=== PATIENT | female | born 1970 | race Caucasian/White ===

== ENCOUNTER 2019-08-10 17:02 | Emergency (ER) | payer OTHER, SELFPAY | END 2019-08-10 17:05 | disposition left against medical advice (07) | LOC: ANHED 08-21 16:12 | DX: Z53.21 Procedure and treatment not carried out due to patient leaving prior to being seen by health care provider (principal) | CPT/HCPCS: 99199 ==

== ENCOUNTER 2021-05-15 10:27 | Emergency (ER) | payer OTHER, SELFPAY ==
[2021-05-15 10:40] VITALS: BP 141/63; PULSE 77; RESP 20; TEMP 36.8; O2SAT 98
[2021-05-15 10:46] VITALS: BP 141/63; PULSE 77; RESP 20; TEMP 36.8; O2SAT 98
--- NOTE | 2021-05-15 11:09 | ED.DENTAL ---
HPI - Dental/Oral General Chief complaint: Dental/Oral Stated complaint: Swollen Gland Source: patient and RN notes reviewed Mode of arrival: ambulatory Limitations: no limitations History of Present Illness HPI Narrative: Annie is a 50-year-old female patient who ambulated into the [facility]. Patient states she has a swollen lymph node by her her right jaw. She is worried because her sister had a type of melanoma and was found in her lymph node. Patient states she has been struggling with seasonal allergies and her asthma the last couple weeks. Patient denies any dental issues. Denies any [id number] treatment. Denies any health history except asthma. Related Data Home Medications Medication Instructions Recorded Confirmed albuterol sulfate 1 inh INHALATION QID PRN 08/10/19 05/15/21 albuterol sulfate 2.5 mg INHALATION Q4H PRN 08/10/19 05/15/21 bupropion HCl 300 mg PO DAILY 05/15/21 05/15/21 diclofenac sodium 75 mg PO DAILY 05/15/21 05/15/21 pregabalin 75 mg PO DAILY 05/15/21 05/15/21 trazodone 50 mg PO DAILY 05/15/21 05/15/21 valacyclovir 500 mg PO DAILY 05/15/21 05/15/21 Allergies Allergy/AdvReac Type Severity Reaction Status Date / Time Penicillins Allergy Severe quits Verified 05/15/21 10:43 breathing Review of Systems Review of Systems: CONSTITUTIONAL: Denies body aches, fever, chills, or sweats. EYES: Denies visual changes, redness, or discharge. ENT: Denies rhinorrhea, + congestion, denies sore throat, or otalgia. CARDIOVASCULAR: Denies chest pain, palpitations, or edema. RESPIRATORY: + cough denies dyspnea. GASTROINTESTINAL: Denies abdominal pain, nausea, vomiting, or diarrhea. GENITOURINARY: Denies dysuria or hematuria. SKIN: Denies rash, itching, or wounds; swollen lymph node right jaw MUSCULOSKELETAL: Denies back pain, joint pain, or myalgia. NEUROLOGIC: Denies headache, numbness, tingling, or weakness. PSYCH: Denies depression or anxiety. All systems reviewed & are unremarkable except as noted in HPI and below PMFSH Comments At time of signature, I have reviewed and agree with nursing past medical, surgical, social and family history unless otherwise noted. Please see nursing chart for further information. There is no relevant family history pertinent to the presenting complaint Exam Narrative: GENERAL: Well-appearing, well-nourished, and in no acute distress. HEAD: Normocephalic, atraumatic. EYES: EOMI. No redness or drainage. Conjunctivae normal. ENT: Mucous membranes pink and moist. Nares clear. No rhinorrhea. TMs normal bilaterally. Throat normal. Uvula midline. NECK: Normal AROM. Supple. No lymphadenopathy. CHEST: No respiratory distress. Inspiratory and expiratory wheezing to right and left upper lobes. HEART: Regular rate and rhythm. No murmur appreciated. Normal peripheral pulses. ABDOMEN: Soft, nontender, nondistended, normal active bowel sounds. MUSCULOSKELETAL: No bony tenderness. EXTREMITIES: Normal range of motion. No edema. SKIN: Warm, dry, no rash. Capillary refill normal. Normal skin turgor.; enlarged submandibular lymph node, movable, soft, NEURO: No focal deficits. Alert and oriented x3. Gait steady. PSYCH: Normal affect. No signs of depression or anxiety. Course Vital Signs Vital signs: Vital Signs Temperature 36.8 C 05/15/21 10:40 Pulse Rate 77 05/15/21 10:40 Respiratory Rate 20 05/15/21 10:40 Blood Pressure 141/63 H 05/15/21 10:40 Pulse Oximetry 98 05/15/21 10:40 Temperature 36.8 C 05/15/21 10:46 Pulse Rate 77 05/15/21 10:46 Respiratory Rate 20 05/15/21 10:46 Blood Pressure 141/63 H 05/15/21 10:46 Pulse Oximetry 98 05/15/21 10:46 Reviewed. Pt has been instructed to follow up with her PCP regarding her elevated blood pressure today. MDM - Dental/Oral MDM Narrative Medical decision making narrative: Patient has no visible dental caries. Patient has no dental pain. Patient has a swollen lymph node along th
== END 2021-05-15 11:23 | disposition home or self-care (01) ==
PROVIDERS: Emergency Provider Nurse Practitioner Family; PCP Internal Medicine Infectious Disease
DX: J45.21 Mild intermittent asthma with (acute) exacerbation (principal)
CPT/HCPCS: 99213; G0463

== ENCOUNTER 2021-09-15 09:13 | Emergency (ER) | payer OTHER, SELFPAY ==
[2021-09-15 09:17] VITALS: BP 120/64; PULSE 68; RESP 14; TEMP 37.6; O2SAT 100
--- NOTE | 2021-09-15 09:35 | ED.URI ---
HPI - URI/Sore Throat General Chief Complaint: Upper Respiratory Infection Stated Complaint: cough headache sore throat Time Seen by Provider: 09/15/21 09:34 Source: patient and RN notes reviewed Mode of arrival: ambulatory Limitations: no limitations History of Present Illness HPI Narrative: 51 year old female presents with cough that started 3 days ago, and sore throat that started yesterday. She reports a history of asthma, but has not been wheezing and has not had to use her rescue inhaler. She has been using robitussin with little relief. She denies nasal congestion or rhinorrhea, N/V/D, body aches, chills, sweats, fever. Reports he daughter had a sinus infection MD elicited complaint: cough and sore throat Related Data Home Medications Medication Instructions Recorded Confirmed albuterol sulfate 1 inh INHALATION QID PRN 08/10/19 05/15/21 albuterol sulfate 2.5 mg INHALATION Q4H PRN 08/10/19 05/15/21 bupropion HCl 300 mg PO DAILY 05/15/21 05/15/21 diclofenac sodium 75 mg PO DAILY 05/15/21 05/15/21 pregabalin 75 mg PO DAILY 05/15/21 05/15/21 trazodone 50 mg PO DAILY 05/15/21 05/15/21 valacyclovir 500 mg PO DAILY 05/15/21 05/15/21 Allergies Allergy/AdvReac Type Severity Reaction Status Date / Time Penicillins Allergy Severe quits Verified 05/15/21 10:43 breathing Review of Systems Review of Systems: CONSTITUTIONAL: Denies malaise, chills, sweats, or fever. EYES: Denies visual changes, redness, or discharge. ENT: Denies rhinorrhea, congestion, sinus pain, otalgia. Repots sore throat. CARDIOVASCULAR: Denies chest pain, palpitations, or edema. RESPIRATORY: Reports cough. Denies wheezing dyspnea. GASTROINTESTINAL: Denies abdominal pain, nausea, vomiting, diarrhea SKIN: Denies rash or itching. MUSCULOSKELETAL: Denies myalgia. NEUROLOGIC: Denies headache. All systems reviewed & are unremarkable except as noted in HPI and below PMFSH Comments At time of signature, agree with nursing past medical, surgical, social and family history. There is no relevant family history pertinent to the presenting complaint Exam Narrative: GENERAL: Well-appearing, well-nourished, and in no acute distress. HEAD: Normocephalic EYES: PERRLA, conjunctivae clear ENT: Nares clear, clear discharge. Mucous membranes moist. TM pearly ma with sharp light reflex bilaterally; no tragal tenderness. Oropharynx not erythematous without lesions. Tonsils not enlarged and without exudate, no drooling, no hoarseness, no trismus, uvula midline. NECK: Supple. No lymphadenopathy CHEST: Clear to auscultation, breath sounds equal. No wheezing, rhonchi, rales, or stridor. No respiratory distress, speaks in full sentences. HEART: Regular rate and rhythm. No murmur heard. SKIN: Warm, dry, no rash. NEURO: Alert and oriented x3. PSYCH: Normal mood and affect Course Course Emergency Course: Patient is aware of diagnosis, understands and agrees to treatment plan. Anticipatory guidance given. Patient agrees to follow-up as directed and is aware of reasons to seek care at the emergency department. Portions of this record may have been created with voice recognition software Level of Care: Express Care Visit Vital Signs Vital signs: Vital Signs Temperature 99.7 F H 09/15/21 09:17 Pulse Rate 68 09/15/21 09:17 Respiratory Rate 14 09/15/21 09:17 Blood Pressure 120/64 09/15/21 09:17 Pulse Oximetry 100 09/15/21 09:17 Temperature 99.7 F H 09/15/21 09:17 Pulse Rate 68 09/15/21 09:17 Respiratory Rate 14 09/15/21 09:17 Blood Pressure 120/64 09/15/21 09:17 Pulse Oximetry 100 09/15/21 09:17 Reviewed. MDM - URI/Sore Throat MDM Narrative Medical decision making narrative: Differential diagnosis considered: Asthma exacerbation, Cunningham virus, strep pharyngitis, allergic rhinitis, upper respiratory tract infection, sinusitis, rhinosinusitis, nasopharyngitis. viral pharyngitis, otitis media, otitis externa, pneumonia, bronchitis, viral
== END 2021-09-15 10:32 | disposition home or self-care (01) ==
PROVIDERS: Emergency Provider Nurse Practitioner; PCP Internal Medicine Infectious Disease
DX: J06.9 Acute upper respiratory infection, unspecified (principal); Z20.822 Contact with and (suspected) exposure to COVID-19; J45.909 Unspecified asthma, uncomplicated
CPT/HCPCS: 87426; 99213; C9803; G0463

== ENCOUNTER 2022-02-21 14:26 | Emergency (ER) | payer OTHER, SELFPAY ==
--- NOTE | 2022-02-21 14:28 | ED.URI ---
HPI - URI/Sore Throat General Chief Complaint: Upper Respiratory Infection Stated Complaint: Cough, weezing Time Seen by Provider: 02/21/22 14:29 Source: patient and RN notes reviewed History of Present Illness HPI Narrative: Patient is a 51-year-old female who presents the urgent care with complaints of cough and wheezing. Patient states that it started on Monday and she has been using her nebulizers and albuterol inhaler at home. Patient states that her work was adamant that she have a rapid COVID test completed. Patient states that she has mild shortness of breath on exertion which is normal for her asthma exacerbation. Patient denies any other upper respiratory complaints or fever. No acute distress noted. Patient aware of the plan of care. Some parts of this dictation were generated by voice recognition software and may contain typographical and/or grammatical inaccuracies. Related Data Home Medications Medication Instructions Recorded Confirmed albuterol sulfate 2.5 mg/3 mL 2.5 mg inhalation Q4H PRN 08/10/19 05/15/21 (0.083 %) solution for nebulization Shortness Of Breath albuterol sulfate 90 mcg/actuation 1 inh inhalation QID PRN Shortness 08/10/19 05/15/21 aerosol inhaler Of Breath bupropion HCl 300 mg 24 hr tablet, 300 mg PO DAILY 05/15/21 05/15/21 extended release diclofenac sodium 75 mg 75 mg PO DAILY 05/15/21 05/15/21 tablet,delayed release pregabalin 75 mg capsule 75 mg PO DAILY 05/15/21 05/15/21 trazodone 50 mg tablet 50 mg PO DAILY 05/15/21 05/15/21 valacyclovir 500 mg tablet 500 mg PO DAILY 05/15/21 05/15/21 celecoxib 100 mg capsule 100 mg DAILY 02/21/22 02/21/22 valacyclovir 500 mg tablet mg 02/21/22 02/21/22 Allergies Allergy/AdvReac Type Severity Reaction Status Date / Time Penicillins Allergy Severe quits Verified 02/21/22 14:40 breathing Review of Systems Review of Systems: CONSTITUTIONAL: Denies fever, chills, or sweats. EYES: Denies visual changes, redness, or discharge. ENT: Denies rhinorrhea, congestion, sore throat, or otalgia. CARDIOVASCULAR: Denies chest pain, palpitations, or edema. RESPIRATORY: Reports of nonproductive cough of wheezing and intermittent dyspnea GASTROINTESTINAL: Denies abdominal pain, nausea, vomiting, or diarrhea. GENITOURINARY: Denies dysuria or hematuria. SKIN: Denies rash or itching. MUSCULOSKELETAL: Denies back pain, joint pain, or myalgia. NEUROLOGIC: Denies headache, numbness, or weakness. All other systems reviewed are negative, except as documented in HPI. PMFSH Comments At the time of my signature, I reviewed and agree with the nursing past medical, surgical, social, and family history. There is no relevant family history pertinent to the patient complaint. Exam Narrative: GENERAL: This is a well-nourished, well-developed patient, in no apparent distress. HEAD: normocephalic, atraumatic. EYES: PERRL. Sclera clear/white. Vision is grossly intact. EARS: External ears normal, auditory canals clear and without drainage, TMs normal without perforation. Hearing grossly intact. NOSE: External nose normal with no obvious nasal discharge, nares without redness, no rhinorrhea. THROAT: Mucous membranes moist, posterior pharynx clear. NECK: Neck supple, non-tender without lymphadenopathy CARDIOVASCULAR: Regular rate and rhythm without murmurs, gallops, or rubs. RESPIRATORY: Moderate crackles and expiratory wheezes throughout SKIN: warm, intact with no suspicious lesions or rash, good texture and turgor. NEURO: awake, alert, and oriented to person, place and time. There were no obvious focal neurologic abnormalities. EXTREMITIES: No clubbing, cyanosis, or edema. Course Course Level of Care: Express Care Visit Vital Signs Vital signs: Vital Signs Temperature 98.9 F 02/21/22 14:32 Pulse Rate 85 02/21/22 14:32 Respiratory Rate 16 02/21/22 14:32 Blood Pressure 139/70 02/21/22 14:32 Pulse Oximetry 99 02/21/22 14:32 Oxygen Delivery Room
[2022-02-21 14:32] VITALS: BP 139/70; PULSE 85; RESP 16; TEMP 37.2; O2SAT 99
== END 2022-02-21 15:07 | disposition home or self-care (01) ==
PROVIDERS: Emergency Provider Nurse Practitioner Family
DX: J45.21 Mild intermittent asthma with (acute) exacerbation (principal); Z20.822 Contact with and (suspected) exposure to COVID-19
CPT/HCPCS: 87426; 99213; C9803; G0463

== ENCOUNTER 2023-07-21 17:49 | Emergency (ER) | payer OTHER, SELFPAY ==
[2023-07-21 17:53] VITALS: BP 152/78; PULSE 97; RESP 18; TEMP 37.5; O2SAT 97
--- NOTE | 2023-07-21 17:53 | ED.URI ---
HPI - URI/Sore Throat General Stated Complaint: cough Time Seen by Provider: 07/21/23 17:54 Source: patient and RN notes reviewed Mode of arrival: ambulatory Limitations: no limitations History of Present Illness HPI Narrative: 53-year-old female with history of asthma presents with concern for 5 day history of worsening cough, increased need for albuterol, shortness of breath. Reports she has been using her albuterol nebulizer and inhaler without much relief. She reports history of being hospitalized with asthma without 10 years ago. MD elicited complaint: cough Related Data Home Medications Medication Instructions Recorded Confirmed albuterol sulfate 2.5 mg/3 mL 2.5 mg inhalation Q4H PRN 08/10/19 07/21/23 (0.083 %) solution for nebulization Shortness Of Breath bupropion HCl 300 mg 24 hr tablet, 300 mg PO DAILY 05/15/21 07/21/23 extended release pregabalin 75 mg capsule 75 mg PO DAILY 05/15/21 07/21/23 trazodone 50 mg tablet 50 mg PO DAILY 05/15/21 07/21/23 valacyclovir 500 mg tablet 500 mg PO DAILY 05/15/21 07/21/23 celecoxib 100 mg capsule 100 mg DAILY 02/21/22 07/21/23 Allergies Allergy/AdvReac Type Severity Reaction Status Date / Time Penicillins Allergy Severe quits Verified 07/21/23 18:06 breathing Review of Systems Review of Systems: CONSTITUTIONAL: Denies malaise, chills, sweats, or fever. EYES: Denies visual changes, redness, or discharge. ENT: Denies rhinorrhea, congestion. Denies sinus pain, otalgia and sore throat. CARDIOVASCULAR: Denies chest pain, palpitations, or edema. RESPIRATORY: Reports cough, wheezing, dyspnea. GASTROINTESTINAL: Denies abdominal pain, nausea, vomiting, diarrhea SKIN: Denies rash or itching. MUSCULOSKELETAL: Denies myalgia. NEUROLOGIC: Denies headache. All systems reviewed & are unremarkable except as noted in HPI and below PMFSH Comments At time of signature, agree with nursing past medical, surgical, social and family history. There is no relevant family history pertinent to the presenting complaint Exam Narrative: GENERAL: Well-appearing, well-nourished, and in no acute distress. HEAD: Normocephalic EYES: PERRLA, conjunctivae clear ENT: Nares clear. Mucous membranes moist. TM pearly ma with dull light reflex bilaterally; no tragal tenderness. Oropharynx not erythematous without lesions. Tonsils not enlarged and without exudate, no drooling, no hoarseness, no trismus, uvula midline. NECK: Supple. No lymphadenopathy CHEST: Inspiratory and expiratory wheeze throughout, breath sounds equal. No wheezing, rhonchi, rales, or stridor. No respiratory distress, speaks in full sentences. HEART: Regular rate and rhythm. No murmur heard. SKIN: Warm, dry, no rash. NEURO: Alert and oriented x3. PSYCH: Normal mood and affect Course Course Emergency Course: Patient is aware of diagnosis, understands and agrees to treatment plan. Anticipatory guidance given. Patient agrees to follow-up as directed and is aware of reasons to seek care at the emergency department. Portions of this record may have been created with voice recognition software Level of Care: Express Care Visit Vital Signs Vital signs: Reviewed. MDM - URI/Sore Throat MDM Narrative Medical decision making narrative: Differential diagnosis considered: Cunningham virus, strep pharyngitis, allergic rhinitis, upper respiratory tract infection, sinusitis, rhinosinusitis, nasopharyngitis. viral pharyngitis, otitis media, otitis externa, pneumonia, bronchitis, viral cough syndrome, viral syndrome, and influenza. Exam findings show no acute concerns or changes; patient is non-toxic appearing and is in no distress. Patient is appropriate for outpatient treatment and follow-up. Lab Data Attestation: I reviewed the patient's lab results. Critical Care Time Critical Care Time Critical Care Time: No Discharge Plan Discharge Clinical Impression: Asthma exacerbation Patient Disposition: Home, Self-Care
== END 2023-07-21 18:15 | disposition home or self-care (01) ==
PROVIDERS: Emergency Provider Nurse Practitioner; PCP Family Medicine
DX: J45.901 Unspecified asthma with (acute) exacerbation (principal); F41.9 Anxiety disorder, unspecified; F32.A Depression, unspecified
CPT/HCPCS: 99213; G0463

== ENCOUNTER 2023-12-19 08:58 | Emergency (ER) | payer OTHER, SELFPAY ==
[2023-12-19 09:04] VITALS: BP 103/68; PULSE 73; RESP 20; TEMP 37.1; O2SAT 98
--- NOTE | 2023-12-19 09:05 | ED.SKABFB ---
HPI - Skin/Abscess/Foreign Bdy General Chief complaint: Skin/Abscess/Foreign Body Stated complaint: poss poison ari or bites Time Seen by Provider: 12/19/23 09:07 Source: patient, RN notes reviewed and old records reviewed Mode of arrival: ambulatory Limitations: no limitations History of Present Illness HPI narrative: 53 year old female who presents to [facility] care with complaints of 5 day duration of red irritated rash to right inner wrist and to her lower legs which is itchy. Patient reports that she has been in her yard but has not noted any poison plants or known exposure. Patient has tried Benadryl spray and Calamine ointment for the itching without improvement. Patient denies any difficulty with her breathing or with swallowing. MD complaint: rash Onset (ago): day(s) (5) Severity: moderate Treatments prior to arrival: Benadryl and other (Calamine lotion) Related Data Home Medications Medication Instructions Recorded Confirmed albuterol sulfate 2.5 mg/3 mL 2.5 mg inhalation Q4H PRN 08/10/19 07/21/23 (0.083 %) solution for nebulization Shortness Of Breath bupropion HCl 300 mg 24 hr tablet, 300 mg PO DAILY 05/15/21 07/21/23 extended release pregabalin 75 mg capsule 75 mg PO DAILY 05/15/21 07/21/23 trazodone 50 mg tablet 50 mg PO DAILY 05/15/21 07/21/23 valacyclovir 500 mg tablet 500 mg PO DAILY 05/15/21 07/21/23 celecoxib 100 mg capsule 100 mg DAILY 02/21/22 07/21/23 chlorthalidone 25 mg tablet 25 mg PO DAILY 07/21/23 07/21/23 fluticasone 250 mcg-salmeterol 50 1 inh inhalation BID 07/21/23 07/21/23 mcg/dose blistr powdr for inhalation (Advair Diskus) montelukast 10 mg tablet 10 mg PO DAILY 07/21/23 07/21/23 Allergies Allergy/AdvReac Type Severity Reaction Status Date / Time Penicillins Allergy Severe quits Verified 07/21/23 18:06 breathing Review of Systems Review of Systems: CONSTITUTIONAL: Denies fever, chills, or sweats. CARDIOVASCULAR: Denies chest pain, palpitations, or edema. RESPIRATORY: Denies cough or dyspnea. SKIN: Reports rash to her legs and right inner wrist that is itchy for 5 day duration MUSCULOSKELETAL: Denies joint pain or myalgia. NEUROLOGIC: Denies headache, numbness, or weakness. All systems reviewed & are unremarkable except as noted in HPI and below PMFSH Past Medical History Medical History (Updated 12/20/23 @ 07:06 by Yin Tee NP) Anxiety and depression Asthma Surgical History Surgical History (Updated 12/19/23 @ 09:15 by Yin Tee NP) History of carpal tunnel release of both wrists Previous section Social History Social History (Updated 12/19/23 @ 09:09 by Yin Tee NP) Smoking status: Never smoker Alcohol intake: current Alcohol use details: social Substance use type: does not use Gender identity (if verbalized by the patient): Female Comments At time of signature, agree with nursing past medical, surgical, social and family history. There is no relevant family history pertinent to the presenting complaint Exam Narrative: GENERAL: Well-appearing, well-nourished, and in no acute distress. HEAD: Normocephalic, atraumatic. EYES: PERRLA, conjunctivae clear, and EOMI. ENT: Mucous membranes moist. Oropharynx without edema, erythema or lesions. NECK: Supple. No lymphadenopathy CHEST: Clear to auscultation. No respiratory distress.SAO2 98% on room air HEART: Regular rate and rhythm. SKIN: Warm, dry.? Patches of red raised rash to right inner wrist and on bilateral lower legs with some scabs from itching no drainage noted NEURO:? Alert and oriented x3. PSYCH: Normal mood and affect Course Course Emergency Course: Patient is aware of diagnosis, understands and agrees to treatment plan.? Anticipatory guidance given.? Patient agrees to follow-up as directed and is aware of reasons to seek care at the emergency department. Portions of this record may have been created with voice re
== END 2023-12-19 09:25 | disposition home or self-care (01) ==
PROVIDERS: Emergency Provider Registered Nurse; PCP Internal Medicine Infectious Disease
DX: L25.5 Unspecified contact dermatitis due to plants, except food (principal); J45.909 Unspecified asthma, uncomplicated; F41.9 Anxiety disorder, unspecified; F32.A Depression, unspecified
CPT/HCPCS: 99213; G0463